=== PATIENT | female | born 1960 | race Native Hawaiian/Other Pacific Islander ===

== ENCOUNTER 2018-04-12 17:58 | Emergency (ER) | payer OTHER ==
[~2018-04-12] VITALS: Ht 157.5 cm; Wt 68.0 kg
[~2018-04-12 17:58] MED LIST: ANUSOL-HC2.5 % RE; BENZ1TAB43 PO; BENZTROPINE0.5 MG PO; BUSP15TAB2 PO; BUSP5TAB2 PO; BUSPIRONE15 MG PO; CLON0.5T36 PO; DEPAKOTE PO; DIVA500T2 PO; DOCU100C10 PO; DONE5TAB PO; ESCITALOPRAM5 MG PO; FERROUS SULF325 M1 PO; FIBE1 PO; FORTAMET1000 MG PO; HALO5INJ3 IM; HYDROCORTISONE2.5 % EX; LEVO0.0529 PO; LEXAPRO10 MG PO; LIPITOR40 MG PO; LORA2INJ21 IM; LORAZEPAM1 MG IM; LORTAB 7.5-3251 TAB PO; MAGNESIA PO; MEMA5TAB PO; MEMANTINE HCL10 MG PO; METF100038 PO; METF500T PO; METO25TA4 PO; METO50TA27 PO; MIRTAZAPINE7.5 MG PO; MOBIC15 MG PO; MULT1 PO; MULTIVITAMI1 PO; NAMENDA10 MG PO; OLANZAPINE5 M1 PO; PEPTO-BISM524 MG/30 PO; PHEN100C15 PO; PHEN50CH2 PO; PHENYTEK200 MG PO; PHENYTOIN EX100 MG PO; PROTONIX PO; PROTONIX20 MG PO; RISP50IN IM; SENNA8.6 MG PO; SEROQUEL100 MG PO; SPIR50TA8 PO; TEMA15CA19 PO; TRAZ50TA36 PO; VALPROIC A250 MG/5 M PO; VALPROIC ACID10 ML PO; VENLAFAXINE75 M2 PO; ZANTAC 75 PO; ZESTRIL40 MG PO; ZIPR20CA PO
[2018-04-12 18:20] VITALS: BP 207/93; TEMP 97.5
[2018-04-12 19:30] LABS: PLATELET COUNT 186 K/uL (152-353)
[2018-04-12 19:40] LABS: POTASSIUM 4.3 mmol/L (3.6-5.2)
[2018-04-12] MEDS ORDERED: DIVALPROEX SODIUM PO (22:05)
[2018-04-12] MEDS ORDERED: HALOPERIDOL2 MG PO (22:06)
[2018-04-12] MEDS ORDERED: BENADRYL 50M50 MG/ML IJ (22:14)
[2018-04-12] MEDS ORDERED: OXYC5TAB53 PO (22:16)
[2018-04-12] MEDS ORDERED: AMLODIPINE BESYLATE PO (22:17)
[2018-04-12] MEDS ORDERED: PANTOPRAZOLE 40MG TA PO (22:25)
[2018-04-29] MEDS ORDERED: DIVA500T2 PO (10:20)
[2018-04-29] MEDS ORDERED: MAGN400T4 PO (10:20)
[2018-04-29] MEDS ORDERED: HALO50IN4 IM (10:20)
[2018-04-29] MEDS ORDERED: BENZ1TAB43 PO (10:20)
[2018-04-29] MEDS ORDERED: RISP50IN IM (10:20)
[2018-04-29] MEDS ORDERED: RISP0.25 PO (10:20)
[2018-04-29] MEDS ORDERED: HALO5TAB10 PO (10:20)
[2018-04-29] MEDS ORDERED: DONE5TAB PO (10:20)
[2018-04-29] MEDS ORDERED: OLANZAPINE10 MG PO (10:20)
[2018-04-29] MEDS ORDERED: LEVO0.0723 PO (10:20)
[2018-04-29] MEDS ORDERED: BUSPIRONE10 MG PO (10:21)
== END 2018-04-12 20:39 | disposition other institution (70) ==
LOC: ED 17:58
PROVIDERS: Emergency Medicine
DX: Z04.6 Encounter for general psychiatric examination, requested by authority (principal); F20.89 Other schizophrenia; F03.90 Unspecified dementia, unspecified severity, without behavioral disturbance, psychotic disturbance, mood disturbance, and anxiety
CPT/HCPCS: 80053; 85027; 93005; 99285